=== PATIENT | male | born 1975 | race Caucasian/White ===

== ENCOUNTER 2017-03-14 10:04 | Emergency (ER) | payer BC ==
[~2017-03-14] VITALS: Ht 188 cm; Wt 150.0 kg
[2017-03-14 10:06] VITALS: BP 134/77; PULSE 88; RESP 18; TEMP 98.7; O2SAT 93
[2017-03-14] MEDS ORDERED: [UNRECOGNIZED DRUG - OTHER] (10:17)
[2017-03-14] MEDS ORDERED: METF1000 PO (10:17)
[2017-03-14] MEDS ORDERED: LISI2.5T3 PO (10:17)
--- NOTE | 2017-03-14 10:37 | RADRPT ---
EXAM DATE/TIME: 03/14/2017 10:28 [place] COMPARISON: No previous studies available for comparison. INDICATIONS : Shortness of breath and cough. Recently quit smoking. MEDICAL HISTORY : Hypertension. Diabetes mellitus type II. Smoker. SURGICAL HISTORY : None. ENCOUNTER: Initial ACUITY: 1 month PAIN SCORE: 0/10 LOCATION: Bilateral chest FINDINGS: PA and lateral views of the chest demonstrate the lungs to be symmetrically aerated without evidence of mass, infiltrate or effusion. The cardiomediastinal contours are unremarkable. Osseous structure s are intact. Mild spurs are seen in the thoracic spine. CONCLUSION: Normal examination. Konstantin Mejia MD on March 14, 2017 at 10:33 Board Certified Radiologist. This report was verified electronically.
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
[2017-03-14] MEDS ORDERED: methylPREDNISolone SOD SUCC 125 MG/2 ML VIAL IV PUSH ONE (11:00)
[2017-03-14] MEDS: RESP: ALBUTEROL 2.5 MG/IPRATROPIUM 0.5 MG NEB (SCH) INH (11:02)
[2017-03-14 11:07] LABS: AUTOMATED NEUTROPHIL # 4.7 TH/MM3 (1.8-7.7); BASOPHIL # 0.1 TH/MM3 (0-0.2); BASOPHIL % 0.8 % (0.0-2.0); EOSINOPHIL # 0.9 TH/MM3 (0-0.4); HEMATOCRIT 52.9 % (39.0-51.0); HEMOGLOBIN 18.2 GM/DL (13.0-17.0); LYMPH % 22.6 % (9.0-44.0); LYMPHOCYTE # 1.9 TH/MM3 (1.0-4.8); MEAN CELL VOLUME 91.1 FL (80.0-100.0); MEAN CORPUSCULAR HEMOGLOBIN 31.3 PG (27.0-34.0); MEAN CORPUSCULAR HGB CONC 34.4 % (32.0-36.0); MEAN PLATELET VOLUME 7.7 FL (7.0-11.0); MONO % 10.5 % (0.0-8.0); MONOCYTE # 0.9 TH/MM3 (0-0.9); NEUT % 55.1 % (16.0-70.0); PLATELET COUNT 264 TH/MM3 (150-450); RED BLOOD COUNT 5.81 MIL/MM3 (4.50-5.90); RED CELL DISTRIBUTION WIDTH 13.2 % (11.6-17.2); WHITE BLOOD COUNT 8.5 TH/MM3 (4.0-11.0)
[2017-03-14 11:22] LABS: CALCIUM 8.6 MG/DL (8.5-10.1); CREATININE 0.8 MG/DL (0.60-1.30)
[2017-03-14] MEDS ORDERED: ALBUAER3 INH (11:57)
[2017-03-14] MEDS ORDERED: PRED20 PO (11:57)
[2017-03-14] MEDS ORDERED: AZIT500T2 PO (11:57)
[2017-03-14] MEDS ORDERED: AZITHROMYCIN 250 MG TAB PO ONE (12:00)
--- NOTE | 2017-03-14 16:58 | EKG ---
Date Performed: 03/14/2017 Time Performed: 10:34:23 PTAGE: 41 years EKG: Sinus rhythm POSSIBLE ANTERIOR MYOCARDIAL INFARCTION ABNORMAL ECG NO PREVIOUS TRACING Compared to prior tracing no significant change DOCTOR: Blank Dhaliwal Interpretating Date/Time 03/14/2017 16:58:00
== END 2017-03-14 12:57 | disposition home or self-care (01) ==
LOC: NEPD 10:04
DX: J44.0 Chronic obstructive pulmonary disease with (acute) lower respiratory infection (principal); J20.9 Acute bronchitis, unspecified; Z72.0 Tobacco use
CPT/HCPCS: 71020; 80048; 85025; 87804; 93005; 94640; 94664; 96374; 99285; J2930